=== PATIENT | male | born 1980 | race Caucasian/White ===

== ENCOUNTER 2020-08-05 07:18 | Emergency (ER) | payer MEDICAID, OTHER ==
[~2020-08-05] VITALS: Ht 182.9 cm; Wt 104.0 kg
[2020-08-05] MEDS ORDERED: MELO7.5T35 (07:30)
[2020-08-05] MEDS ORDERED: OMEP-221 (07:30)
[2020-08-05] MEDS ORDERED: OMEP-218 (07:30)
[2020-08-05 10:01] VITALS: BP 88/49
== END 2020-08-05 10:05 | disposition home or self-care (01) ==
LOC: M ED 07:18
DX: Z59.0 Homelessness (principal); F17.200 Nicotine dependence, unspecified, uncomplicated; F16.10 Hallucinogen abuse, uncomplicated

== ENCOUNTER 2024-11-02 11:31 | Emergency (ER) | payer MEDICAID, OTHER ==
[~2024-11-02] VITALS: Ht 175.3 cm; Wt 96.1 kg
[~2024-11-02 11:31] MED LIST: MELO7.5T35; OMEP-173; OMEP40CA5
[2024-11-02] MEDS: KETOROLAC 30 MG/ML 1ML VIAL IV ONE (12:32)
[2024-11-02 12:33] LABS: BASO # 0.1 10^3/uL (0.0-0.2); BASO % 0.5 % (0.0-1.0); EOS # 0.1 10^3/uL (0.0-0.5); EOS % 0.5 % (0.0-3.0); HEMATOCRIT 45.3 % (42.0-52.0); HEMOGLOBIN 15.7 g/dl (13.5-17.5); LYMPH # 2.3 10^3/uL (1.5-5.0); MEAN CORPUSCULAR HEMOGLOBIN 30.5 pg (27.0-33.0); MEAN CORPUSCULAR HGB CONC 34.7 g/dl (32.0-36.5); MEAN CORPUSCULAR VOLUME 88.1 fl (80.0-96.0); MONO # 0.9 10^3/uL (0.0-0.8); MONO % 6.7 % (2.0-8.0); NEUTROPHILS # 10.1 10^3/uL (1.5-8.5); NEUTROPHILS % 74.8 % (36.0-66.0); PLATELET COUNT, AUTOMATED 329 10^3/uL (150-450); RED BLOOD COUNT 5.14 10^6/uL (4.30-6.10); WHITE BLOOD COUNT 13.5 10^3/uL (4.0-10.0)
[2024-11-02 12:41] LABS: ERYTHROCYTE SEDIMENTATION RATE 39 mm/hr (0-15)
[2024-11-02 13:00] LABS: ALKALINE PHOSPHATASE 62 U/L (40-129); ALT/SGPT 30 U/L (7.0-40); AST/SGOT 14 U/L (<34); BILIRUBIN,TOTAL 1.3 MG/DL (0.3-1.2); BLOOD UREA NITROGEN 7 MG/DL (9-23); C REACTIVE PROTEIN QUANTITATIV 6.75 MG/DL (<1.0); CALCIUM LEVEL 9.5 MG/DL (8.5-10.1); CARBON DIOXIDE LEVEL 30 MMOL/L (20-31); CHLORIDE LEVEL 101 MMOL/L (98-107); CREATININE FOR GFR 0.68 MG/DL (0.70-1.30); GLOMERULAR FILTRATION RATE > 60.0 (>60); GLUCOSE, FASTING 128 MG/DL (60-100); POTASSIUM SERUM 3.6 MMOL/L (3.5-5.1); SODIUM LEVEL 140 MMOL/L (136-145); TOTAL PROTEIN 7.8 G/DL (5.7-8.2)
[2024-11-02] MEDS ORDERED: ISOVUE-370 76% 100ML VIAL As Ordered ONE (13:10)
[2024-11-02] MEDS: AMPICILLIN SOD/SULBACTAM SOD 3 GM in DEXTROSE 5% (D5W) MINI-BAG PLU 100 ML IV ONE (13:59)
[2024-11-02] MEDS ORDERED: PERI0.126 PO (14:21)
[2024-11-02] MEDS ORDERED: ACET-907 PO (14:21)
[2024-11-02] MEDS ORDERED: AMOX875T2 PO (14:21)
[2024-11-02] MEDS ORDERED: IBUP-1022 PO (14:21)
[2024-11-02 15:45] VITALS: BP 132/85; TEMP 99.5; O2SAT 97
== END 2024-11-02 15:47 | disposition home or self-care (01) ==
LOC: M ED 11:31
DX: K04.7 Periapical abscess without sinus (principal); Z91.013 Allergy to seafood
CPT/HCPCS: 70486; 70491; 80053; 85025; 85652; 86140; 87040; 96365; 96366; 96375; 99284; J0295; J1885; Q9967